=== PATIENT | male | born 1960 | race Caucasian/White ===

== ENCOUNTER 2016-08-23 22:00 | Observation (INO) | payer MEDICAID ==
[~2016-08-23] VITALS: Ht 175.3 cm; Wt 105.0 kg
[2016-08-23] MEDS ORDERED: RIVA10TA PO (22:25)
[2016-08-23 22:28] LABS: HEMOGLOBIN 14.6 g/dL (13.7-18.0)
[2016-08-23 22:41] LABS: ASPARTATE AMINO TRANSFERASE 29 U/L (15-37); BLOOD UREA NITROGEN 6 mg/dL (7-18)
[2016-08-23 22:54] LABS: ACETAMINOPHEN < 2 mcg/mL (10-30)
[2016-08-24 03:03] LABS: DAU SCREEN DISCLAIMER
[2016-08-24 08:00] VITALS: BP 148/73
[2016-08-24] MEDS ORDERED: LORazepam 2 MG/ML, 1ML IM PRN ×2 (08:00)
[2016-08-24] MEDS ORDERED: POTASSIUM CHLORIDE 20 MEQ TAB.ER.PRT PO ONE (08:00)
[2016-08-24] MEDS ORDERED: ONDANSETRON ODT 4 MG PO PRN (08:00)
[2016-08-24] MEDS: NICOTINE 14MG/24 HR PATCH.TD24 TD SCH (08:25)
[2016-08-24] MEDS: RIVAROXABAN 20 MG TABLET PO SCH (09:16)
[2016-08-24] MEDS: THIAMINE 100MG TABLET PO SCH (09:16)
[2016-08-24] MEDS: MULTIVITAMIN 1 TABLET PO SCH (09:16)
[2016-08-24] MEDS: FOLIC ACID 1 MG TABLET PO SCH (09:16)
[2016-08-24 19:14] VITALS: BP 144/82
[2016-08-25] MEDS: NICOTINE 14MG/24 HR PATCH.TD24 TD SCH (08:00)
[2016-08-25 08:01] VITALS: BP 147/82
[2016-08-25] MEDS: THIAMINE 100MG TABLET PO SCH (08:26)
[2016-08-25] MEDS: MULTIVITAMIN 1 TABLET PO SCH (08:26)
[2016-08-25] MEDS: RIVAROXABAN 20 MG TABLET PO SCH (08:26)
[2016-08-25] MEDS: FOLIC ACID 1 MG TABLET PO SCH (08:26)
[2016-08-25] MEDS ORDERED: VALP250C59 PO (11:02)
[2016-08-25] MEDS ORDERED: RIVA20TA PO (11:02)
[2016-08-25] MEDS ORDERED: LISI5TAB7 PO (11:02)
[2016-08-25] MEDS ORDERED: ACET325T26 PO (11:02)
[2016-08-25] MEDS ORDERED: ATOR40TA78 PO (11:02)
[2016-08-25] MEDS ORDERED: ASPI-496 PO (11:02)
[2016-08-25] MEDS ORDERED: MULT-108 PO (11:02)
[2016-08-25] MEDS ORDERED: CYCL-259 PO (11:02)
[2016-08-25] MEDS ORDERED: TRAZ50TA18 PO (11:02)
[2016-08-25] MEDS ORDERED: HYDR50TA13 PO (11:02)
[2016-08-25] MEDS ORDERED: GABA300C10 PO (11:02)
[2016-08-25 19:37] VITALS: BP 142/93
[2016-08-25] MEDS: LORazepam 1MG TABLET PO PRN (19:49)
[2016-08-26 01:44] VITALS: BP 125/82
[2016-08-26] MEDS: LORazepam 1MG TABLET PO PRN ×4 (01:49→20:24)
[2016-08-26 07:53] VITALS: BP 127/83
[2016-08-26] MEDS: NICOTINE 14MG/24 HR PATCH.TD24 TD SCH (08:00)
[2016-08-26] MEDS: RIVAROXABAN 20 MG TABLET PO SCH (08:13)
[2016-08-26] MEDS: FOLIC ACID 1 MG TABLET PO SCH (08:13)
[2016-08-26] MEDS: THIAMINE 100MG TABLET PO SCH (08:13)
[2016-08-26] MEDS: MULTIVITAMIN 1 TABLET PO SCH (08:13)
[2016-08-26 19:09] VITALS: BP 137/93
[2016-08-26 19:24] VITALS: BP 137/93
[2016-08-27] MEDS: LORazepam 1MG TABLET PO PRN (03:04)
[2016-08-27] MEDS: RIVAROXABAN 20 MG TABLET PO SCH (08:11)
[2016-08-27] MEDS: FOLIC ACID 1 MG TABLET PO SCH (08:11)
[2016-08-27] MEDS: MULTIVITAMIN 1 TABLET PO SCH (08:11)
[2016-08-27] MEDS: THIAMINE 100MG TABLET PO SCH (08:11)
[2016-08-27 08:18] VITALS: BP 118/81
[2016-08-27 08:28] VITALS: BP 149/98
[2016-08-27] MEDS: NICOTINE 14MG/24 HR PATCH.TD24 TD SCH (08:32)
[2016-08-27] MEDS ORDERED: TRAZODONE 50MG TABLET PO PRN (16:30)
[2016-08-27] MEDS ORDERED: ACETAMINOPHEN 325 MG TABLET PO PRN (17:00)
[2016-08-27 19:21] VITALS: BP 126/85
== END 2016-08-28 00:08 ==
LOC: ED 23:24 → EDIP 08-24 06:52 → 3E 08-24 08:03
DX: R45.851 Suicidal ideations (principal); R45.850 Homicidal ideations; E78.5 Hyperlipidemia, unspecified; E87.6 Hypokalemia; F10.220 Alcohol dependence with intoxication, uncomplicated; I25.10 Atherosclerotic heart disease of native coronary artery without angina pectoris; I48.91 Unspecified atrial fibrillation; I10 Essential (primary) hypertension; I25.2 Old myocardial infarction; F32.9 Major depressive disorder, single episode, unspecified; F17.210 Nicotine dependence, cigarettes, uncomplicated; Z79.01 Long term (current) use of anticoagulants
CPT/HCPCS: 36415; 80053; 80307; 80329; 81003; 85025; 99285; G0378; G0480